=== PATIENT | male | born 1985 | race Two or more races ===

== ENCOUNTER 2024-03-11 10:40 | Day surgery (SDC) | payer MEDICAID, SELFPAY ==
--- NOTE | 2024-03-08 12:21 | EKG_ITS ---
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
[2024-03-08 12:27] VITALS: BMI 33.3
[2024-03-08 12:55] LABS: Collection Type, Urine Clean Catch; Squamous Epithelial Cell,Urine 0 /hpf (0-5)
[2024-03-08 13:18] LABS: Basophils # (Auto) 0.1 Thou/mm3 (0.0-0.2); Basophils % (Auto) 1 % (0-2.5); Eosinophils # (Auto) 0.3 Thou/mm3 (0.0-0.5); Eosinophils % (Auto) 3 % (0-10); Hematocrit 45.8 % (41.0-53.0); Immature Granulocytes % (Auto) 0 % (0-0); Immature Granulocytes Auto 0.02 Thou/mm3 (0.00-0.00); Lymphocytes # (Auto) 3.1 Thou/mm3 (1.0-4.8); Lymphocytes % (Auto) 32 % (10-50); Mean Corpuscular HGB Conc 34.9 g/dl (31.0-37.0); Mean Corpuscular Hemoglobin 28.7 pg (25.0-35.0); Mean Corpuscular Volume 82 fL (80-100); Monocytes # (Auto) 0.7 Thou/mm3 (0.0-0.8); Monocytes % (Auto) 7 % (0-12); Neutrophils # (Auto) 5.7 Thou/mm3 (1.8-7.7); Neutrophils % (Auto) 58 % (37-80); Nucleated Red Blood Cell % 0 /100 WBC (0); Platelet Count 257 Thou/mm3 (140-440); RDW Standard Deviation 37.7 fL (35.1-43.9); Red Blood Count 5.57 Miln/mm3 (4.50-5.90); White Blood Count 9.9 Thou/mm3 (3.8-10.6)
[2024-03-08 13:21] LABS: Bilirubin,Urine Negative (Negative); Blood,Urine Negative (Negative); Clarity,Urine Clear (Clear/Hazy); Color,Urine Lt-Yellow (Lt Yel-Yel); Glucose, Urine Negative (Negative); Ketones,Urine Negative (Negative); Leukocyte Esterase,Urine Negative (Negative); Nitrite,Urine Negative (Negative); PH,Urine 6.5 (5.0-7.0); Protein,Urine Negative (Neg - Trace); RBC,Urine 2 /hpf (0-3); Specific Gravity,Urine 1.023 (1.001-1.035); Urobilinogen,Urine Negative mg/dL (0.0-1.0); WBC,Urine 1 /hpf (0-5)
[2024-03-08 13:26] LABS: Partial Thromboplastin Time 27.2 Seconds (22.0-36.0); Prothrombin Time 10.7 Seconds (9.0-12.2)
[2024-03-08 13:28] LABS: Alanine Aminotransferase 34 U/L (10-49); Albumin, Serum 4.7 gm/dL (3.5-5.0); Albumin/Globulin Ratio 1.7 (1.2-2.2); Alkaline Phosphatase 96 U/L (46-116); Anion Gap 6 (7-16); Aspartate Amino Transferase 24 U/L (0-34); BUN/Creatinine Ratio 13 Ratio (12-20); Bilirubin,Total 0.4 mg/dL (0.3-1.2); Blood Urea Nitrogen 13 mg/dL (9-23); Calcium 9.6 mg/dL (8.3-10.6); Calcium (Corrected) 9.6 mg/dL (8.5-10.1); Carbon Dioxide 27.8 mMol/L (20.0-31.0); Chloride 105 mMol/L (98-107); Estimated Creatinine Clearance 91.4 mL/min (>60); Globulin 2.8 gm/dL (2.3-3.5); Glucose 85 mg/dL (74-106); Osmolality,Calculated 276 (275-295); Potassium 4.2 mMol/L (3.4-5.1); Sodium 139 mMol/L (136-145); Total Protein 7.5 gm/dL (5.7-8.2); eGFR > 60 See Note
--- NOTE | 2024-03-10 15:02 | PD.SURHP ---
HPI Date of Admission March 11, 2024 Chief Complaint Chief Complaint: Large mass in the left thigh. HPI This is a 39-year-old gentleman with a large mass in the left thigh it has been growing in size over a period of time and is giving him significant problem is brought to the hospital for excision of what is a likely lipoma of the left thigh. Risk benefits and alternatives were discussed with the patient) informed consent is obtained. Past Medical History Past Medical History NEUROLOGIC: Negative Neurological Disorders CARDIAC: Negative Cardiac Disorders or Congestive Heart Failure RESPIRATORY: Positive Respiratory Disorders and Asthma; Negative Chronic Obstructive Pulmonary Disease (COPD) GASTROINTESTINAL: Positive Gastrointestinal Disorders, Gastroesophageal Reflux Disease and Obesity; Negative Hepatitis GENITOURINARY: Negative Genitourinary Disorders or Renal Disease MUSCULOSKELETAL: Negative Musculoskeletal Disorders ENT: Negative History of ENT Problems ENDOCRINE: Negative Endocrine Disorders, Diabetes Mellitus Type 1 or Diabetes Mellitus Type 2 HEMATOLOGIC: Negative Blood Disorders OTHER HISTORY: Positive Chicken Pox; Negative Hospitalization, Autoimmune Disease, Shingles, Blood Transfusions, Anesthesia Reactions or Cancer Family History FAMILY HISTORY: Positive Family Endocrine Disorders; Negative Family Psychiatric Problems, Family Respiratory Disorders, Family Cardiac Disorders, Family Gastrointestinal Problems, Family Genitourinary Problems, Family Reproductive Disorders, Family Musculoskeletal Disorders, Family Cancer, Family Surgery or Family Anesthesia Reaction Social History SMOKING STATUS: Never smoker Travel History EBOLA RISK: No Meds Home Medications and Allergies Home Medications ?Medication ?Instructions ?Recorded ?Confirmed ?Type dexlansoprazole 30 mg 30 mg PO DAILY 03/08/24 03/08/24 History capsule,biphase delayed release Allergies Allergy/AdvReac Type Severity Reaction Status Date / Time No Known Allergies Allergy Verified 03/08/24 12:26 Exam Constitutional Constitutional: no acute distress Routine HEENT Exam Head: Present normocephalic Eye: Present EOMI and PERRL ENT: Present mucous membranes moist Routine Neck Exam Neck: Present supple and trachea midline Routine Chest/Breast/Axilla Exam Chest wall: Absent tenderness or mass Routine Respiratory Exam Respiratory: Present chest non-tender, lungs clear, normal breath sounds and no resp distress; Absent respiratory distress Routine Cardiovascular Exam Cardiovascular: Present RRR Routine Abdominal Exam Abdominal: Present soft and normoactive bowel sounds Routine Extremities Exam Extremities: Present full ROM Comments: Left thigh has a large mass in the anterolateral location is likely a lipoma. There is no hyperemia there is no induration. Routine Skin Exam Skin: Present intact, dry and warm Routine Neurological Exam Neurological: Present alert, oriented X3 and CN II-XII intact Routine Psychiatric Exam Psychiatric: Present normal affect and normal thought process Results Results: Laboratory Laboratory results: results reviewed Assessment & Plan Problem List (1) Lipoma of left lower extremity: Status: Acute Plan Excision of a large lipoma left lower extremity. Quality Measures Quality Measures none
[2024-03-11 11:15] VITALS: BP 133/85; PULSE 59; RESP 14; TEMP 36.6; O2SAT 97; BMI 32.8
[2024-03-11] MEDS: RINGERS LACTATED 1000 ML 1,000 ML 60 ML IV (11:20)
[2024-03-11 13:02] VITALS: BP 114/68; PULSE 77; RESP 15; TEMP 36.6; O2SAT 96
--- NOTE | 2024-03-11 13:02 | SUR.PHASEII ---
1302: Pt. AAOx4, vitals stable, breathing unlabored, no complaint of pain or nausea, dressing to left thigh CDI, no active bleed noted, report received from MD Robin and Bang ANGEL.
--- NOTE | 2024-03-11 13:06 | ESOP_ITS ---
Date of Procedure 03/11/24 Pre Op Diagnosis Large lipoma left thigh Post Op Diagnosis Same. Procedure Excision of lipoma left thigh on March 11, 2024 Findings This patient has a lipoma which is located in the anterolateral aspect of the left thigh is quite painful. Upon exploration he was found to have inflamed fibrolipoma. Procedure Description Patient was interviewed in the preoperative area and the procedure was discussed risk benefits and alternatives were discussed with the patient and informed consent was obtained. The mass was identified with the patient and is marked on the surface. Patient was taken to the operating room after that and was given MAC anesthesia local anesthesia 1% with epinephrine is used as an adjunct. The left thigh regions prepped and draped in usual manner and then the local anesthesia was infiltrated and a vertical incision was made on the most prominent part of the mass. Hemostasis is achieved by gentle dissection the subcutaneous tissue is divided the fascia is divided and then the mass is identified and is removed in its entirety. Hemostasis is achieved the fascia is approximated by 2-0 Vicryl interrupted sutures skin is approximated by 4-0 nylon interrupted sutures. Estimated loss of blood less than 10 cc patient taught the procedure very well. Sterile dressing was applied. Anesthesia MAC Drains None. Implants None. Pathology / specimen Other (Lipoma left thigh) Estimated Blood Loss 5 Condition Stable Disposition PACU Surgeon Kee Hernandez MD Surgical Staff Operation Date: 03/11/24 13:15 Case Staff Anesthesiologist: Anthony Robin RN ingot supervisor Bishop Galdamez surgical appliances salesperson
[2024-03-11 13:07] VITALS: BP 112/78; PULSE 89; RESP 15; TEMP 36.4; O2SAT 96
[2024-03-11 13:12] VITALS: BP 128/78; PULSE 82; RESP 14; TEMP 36.4; O2SAT 96
[2024-03-11 13:17] VITALS: BP 131/79; PULSE 83; RESP 20; TEMP 36.8; O2SAT 95
[2024-03-11 13:32] VITALS: BP 127/80; PULSE 75; RESP 20; TEMP 36.6; O2SAT 97
--- NOTE | 2024-03-11 13:39 | SUR.PHASEII ---
1339: Pt. AAO4, vitals stable, breathing unlabored, no complaint of pain or nausea, dressing to left thigh CDI, no active bleed noted, pt. tolerated sips of soda well, pt. ambulated to wheelchair with steady gait and no assist, no complications. Gave discharge instructions to the pt. and his ride using negative turner apprentice Helga, both verbalized understanding and had no further questions. Pt. left with all personal belongings.
== END 2024-03-11 13:39 | disposition home or self-care (01) ==
PROVIDERS: PCP Family Medicine; Referring Provider Specialist; Visit Provider Specialist
PROC: (CPT 27337; principal; 2024-03-11 13:00)
DX: D17.24 Benign lipomatous neoplasm of skin and subcutaneous tissue of left leg (principal); E66.9 Obesity, unspecified; J45.909 Unspecified asthma, uncomplicated; K21.9 Gastro-esophageal reflux disease without esophagitis; Z01.810 Encounter for preprocedural cardiovascular examination
CPT/HCPCS: 27337; 36415; 80053; 81001; 85025; 85610; 85730; 93005; A4649; J2250; J2704; J3010; J3490; J7120; J0665